=== PATIENT | male | born 1995 | race Caucasian/White ===

== ENCOUNTER 2016-03-06 07:40 | Emergency (ER) | payer MEDICAID, OTHER ==
[~2016-03-06] VITALS: Ht 167.6 cm; Wt 65.8 kg
[2016-03-06] MEDS ORDERED: IBUPROFEN 400 MG TABLET ONE (08:04)
[2016-03-06] MEDS ORDERED: IBUPROFEN SUSP 100 MG/5 ML UDC ONE (08:29)
[2016-03-06] MEDS ORDERED: IBUPROFEN SUSP 100 MG/5 ML UDC PO ONE (08:30)
[2016-03-06] MEDS ORDERED: IBUPROFEN 400 MG TABLET PO ONE (08:30)
[2016-03-06 10:02] VITALS: BP 141/83
== END 2016-03-06 10:02 | disposition home or self-care (01) ==
LOC: ER 07:43
DX: S62.307A Unspecified fracture of fifth metacarpal bone, left hand, initial encounter for closed fracture (principal); S50.311A Abrasion of right elbow, initial encounter; S90.511A Abrasion, right ankle, initial encounter; V89.2XXA Person injured in unspecified motor-vehicle accident, traffic, initial encounter; Y93.89 Activity, other specified; Y92.488 Other paved roadways as the place of occurrence of the external cause; Y99.8 Other external cause status
CPT/HCPCS: 29130; 73130; 73503; 99284; A6402; 73510-TC